=== PATIENT | male | born 1975 | race Two or more races ===

== ENCOUNTER 2024-12-25 14:34 | Emergency (ER) | payer SELFPAY ==
[2024-12-25 14:46] VITALS: BP 126/80; PULSE 123; RESP 17; TEMP 36.6; O2SAT 96; BMI 31.1
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
[2024-12-25 15:28] VITALS: BP 125/85; PULSE 110; RESP 18; TEMP 37; O2SAT 93
[2024-12-25 15:51] LABS: Basophils # (Auto) 0.1 Thou/mm3 (0.0-0.2); Basophils % (Auto) 1 % (0-2.5); Eosinophils % (Auto) 0 % (0-10); Hematocrit 44.1 % (41.0-53.0); Hemoglobin 15.5 g/dL (13.5-16.0); Immature Granulocytes % (Auto) 0 % (0-0); Immature Granulocytes Auto 0.04 Thou/mm3 (0.00-0.00); Lymphocytes % (Auto) 8 % (10-50); Mean Corpuscular HGB Conc 35.1 g/dl (31.0-37.0); Mean Corpuscular Hemoglobin 29.6 pg (25.0-35.0); Mean Corpuscular Volume 84 fL (80-100); Monocytes # (Auto) 0.7 Thou/mm3 (0.0-0.8); Monocytes % (Auto) 5 % (0-12); Neutrophils # (Auto) 11.3 Thou/mm3 (1.8-7.7); Neutrophils % (Auto) 86 % (37-80); Nucleated Red Blood Cell % 0 /100 WBC (0); Platelet Count 294 Thou/mm3 (140-440); Red Blood Count 5.24 Miln/mm3 (4.50-5.90); White Blood Count 13.1 Thou/mm3 (3.8-10.6)
[2024-12-25] MEDS: DIPHTH,PERTUSS(ACELL),TET VAC 0.5 ML SYR- ADULT IMi (16:08)
[2024-12-25 16:15] LABS: Alanine Aminotransferase 40 U/L (10-49); Albumin, Serum 5.1 gm/dL (3.5-5.0); Albumin/Globulin Ratio 1.5 (1.2-2.2); Alcohol, Blood Medical 33.7 mg/dL (0-10.0); Alkaline Phosphatase 150 U/L (46-116); Anion Gap 15 (7-16); Aspartate Amino Transferase 46 U/L (0-34); BUN/Creatinine Ratio 10 Ratio (12-20); Blood Urea Nitrogen 11 mg/dL (9-23); Calcium 10.3 mg/dL (8.3-10.6); Calcium (Corrected) 10.3 mg/dL (8.5-10.1); Carbon Dioxide 18.5 mMol/L (20.0-31.0); Chloride 100 mMol/L (98-107); Creatinine (Component) 1.1 mg/dL (0.6-1.3); Estimated Creatinine Clearance 84.2 mL/min (>60); Globulin 3.3 gm/dL (2.3-3.5); Glucose 278 mg/dL (74-106); Osmolality,Calculated 275 (275-295); Potassium 3.9 mMol/L (3.4-5.1); Sodium 133 mMol/L (136-145); Total Protein 8.4 gm/dL (5.7-8.2); eGFR > 60 See Note
[2024-12-25 17:16] VITALS: BP 119/61; PULSE 102; RESP 18; TEMP 36.9; O2SAT 98
[2024-12-25 17:36] LABS: Beta Hydroxybutyrate 1.3 mmol/L (<0.6)
[2024-12-25 18:32] VITALS: BP 110/62; PULSE 100; RESP 19; TEMP 36.6; O2SAT 99
== END 2024-12-25 18:33 ==
PROVIDERS: Emergency Provider Emergency Medicine; PCP Family Medicine
DX: S83.90XA Sprain of unspecified site of unspecified knee, initial encounter (principal); V43.52XA Car driver injured in collision with other type car in traffic accident, initial encounter; S13.9XXA Sprain of joints and ligaments of unspecified parts of neck, initial encounter; S09.90XA Unspecified injury of head, initial encounter; Z23 Encounter for immunization
CPT/HCPCS: 36415; 70450; 71250; 72125; 73560; 74176; 80053; 80320; 82010; 85025; 90471; 90715; 99284; G0480